=== PATIENT | male | born 1990 | race Caucasian/White ===

== ENCOUNTER 2023-11-27 01:24 | Emergency (ER) | payer SELFPAY ==
--- NOTE | ~2023-11-27 | US_ITS ---
EXAMINATION: US venous doppler [facility] DATE: 11/27/2023 03:01 INDICATION: Lower limb pain and erythema TECHNIQUE: Grayscale ultrasound images without and with compression and Doppler ultrasound images of the left lower extremity veins were obtained. COMPARISON: None. FINDINGS: The visualized portions of left common femoral vein, profunda (deep) femoral vein, femoral vein, popl iteal vein, peroneal veins, posterior tibial veins, gastrocnemius vein and greater saphenous vein out flow are patent. IMPRESSION: 1. No deep venous thrombosis in the left lower limb. Reviewed, dictated and finalized at location A.
[2023-11-27 01:35] VITALS: BP 152/83; PULSE 72; RESP 17; TEMP 36.7; O2SAT 99
--- NOTE | 2023-11-27 02:14 | ED.EXTPRO ---
HPI - Extremity Problem General Chief complaint: Extremity Problem,Nontraumatic Stated complaint: L calf pain Time Seen by Provider: 11/27/23 01:29 History of Present Illness HPI Narrative: patient started noticing an area of redness/ pain to his left lower leg, family history of blood clots so he got nervous. No recent injury, no chest pain or shortness of breath Related Data Allergies Allergy/AdvReac Type Severity Reaction Status Date / Time No Known Allergies Allergy Verified 11/27/23 01:25 Review of Systems Review of Systems: All systems reviewed & are unremarkable except as noted in HPI and below Exam Narrative: EXAMINATION OF ORGAN SYSTEMS/BODY AREAS: Constitutional: Vital signs per nursing GENERAL:[No acute distress, non-toxic appearing.] HEAD: Normal with no signs of head trauma. EYES: EOMI, conjunctiva normal ENT: Hearing grossly intact LUNGS: Nonlabored breathing. HEART: [Regular rate and rhythm] ABD: [Soft], [nontender to palpation] EXT: Normal range of motion, no significant swelling of left leg compared to right SKIN: by cm area of redness/induration to the left lower leg which does feel consistent with superficial thrombophlebitis NEURO: [Alert and oriented x 3. No gross focal sensory or strength deficits.] PSYCH: Normal affect Course Vital Signs Vital signs: Vital Signs Temperature 98.1 F 11/27/23 01:35 Pulse Rate 72 11/27/23 01:35 Respiratory Rate 17 11/27/23 01:35 Blood Pressure 152/83 H 11/27/23 01:35 Pulse Oximetry 99 11/27/23 01:35 Oxygen Delivery Room Air 11/27/23 01:35 Temperature 98.1 F 11/27/23 01:35 Pulse Rate 72 11/27/23 01:35 Respiratory Rate 17 11/27/23 01:35 Blood Pressure 152/83 H 11/27/23 01:35 Pulse Oximetry 99 11/27/23 01:35 Oxygen Delivery Room Air 11/27/23 01:35 MDM - Extremity (Nontraumatic) MDM Narrative Medical decision making narrative: patient with swelling and pain to his left lower leg that he noticed today, on exam does appear consistent with superficial thrombophlebitis with sensation of hoarding veins, DVT ultrasound performed thankfully does not show DVT. He is given care instructions for presumed superficial thrombophlebitis, and strict return precautions, I have let him know that there is a good chance he may need a repeat ultrasound to ensure that it has not spread. Patient agreeable to this plan, PCP follow-up instructions given. Discharge Plan Discharge Clinical Impression: Superficial thrombophlebitis Qualifiers: Superficial thrombophlebitis-Involved body area: lower extremity Laterality: left Qualified Code(s): I80.02 - Phlebitis and thrombophlebitis of superficial vessels of left lower extremity Patient Disposition: Home, Self-Care Condition: Stable Instructions: Antibiotic Form, Superficial Thrombophlebitis (ED) Additional Instructions: No obvious DVT seen on ultrasound today. Please follow up with a PCP, take ibuprofen and the antibiotic prescribed, and come back if the pain or swelling worsens or spreads or if you have any shortness of breath or chest pain. You may need a follow up ultrasound in a week to ensure that you did not develop a deep clot. Prescriptions: New cephalexin 500 mg capsule 500 mg PO Q6H 7 Days Qty: 28 0RF ibuprofen 600 mg tablet 600 mg PO TID PRN (Reason: fever or pain) Qty: 30 0RF Follow-up/Referrals: Baldo Hassan MD [Physician] - 2 Days UNKNOWN,DOCTOR [Primary Care Provider] -
[2023-11-27] MEDS: CEPHALEXIN 500 MG CAPSULE PO (02:30)
--- NOTE | 2023-11-27 02:50 | PC.NURSE ---
US in room at bedside at this time.
== END 2023-11-27 03:33 | disposition home or self-care (01) ==
PROVIDERS: Emergency Provider Emergency Medicine
DX: I80.02 Phlebitis and thrombophlebitis of superficial vessels of left lower extremity (principal)
CPT/HCPCS: 93971; 99284; A9270